=== PATIENT | male | born 1985 | race Caucasian/White ===

== ENCOUNTER 2018-03-12 12:12 | Emergency (ER) | payer SELFPAY ==
--- NOTE | 2018-03-12 13:52 | CT ---
NONCONTRAST CT CERVICAL SPINE: DATE: 03/12/18. HISTORY: Upper back pain and neck pain which is worse by moving head or neck. TECHNIQUE: Contiguous axial CT images are obtained through the cervical spine from the skull base to the T2-3 le gabriele. Sagittal and coronal reformatted images are provided. FINDINGS: No fracture or subluxation is seen involving the cervical spine. There is a sclerotic density in the T3 vertebral body demonstrating characteristics most suggestive of a small bone island. Prevertebral soft tissues are within normal limits. The lung apices are clear. IMPRESSION: No fracture or subluxation involving the cervical spine. POS: [facility]
--- NOTE | 2018-03-12 13:57 | CT ---
CT THORACIC SPINE: Technique: Multiple contiguous axial images were obtained through the thoracic spine with multiplanar reconstructions. Indications: Thoracic pain. No history of recent trauma. FINDINGS: Thoracic vertebrae maintain normal height and alignment. No compression deformity. No lytic process. There is a small focal sclerosis seen in the posterior aspect of the T3 vertebra. This is most consis tent with a small bone island. No evidence of disc bulge or disc protrusion. There is no evidence of central canal stenosis. No evid ence of fracture. IMPRESSION: Unremarkable CT thoracic spine. POS: [facility]
== END 2018-03-12 14:03 | disposition home or self-care (01) ==
LOC: ERS 12:12
DX: S29.012A Strain of muscle and tendon of back wall of thorax, initial encounter (principal); F17.210 Nicotine dependence, cigarettes, uncomplicated; X58.XXXA Exposure to other specified factors, initial encounter
CPT/HCPCS: 72125; 72128

== ENCOUNTER 2018-05-24 15:54 | Emergency (ER) | payer SELFPAY | END 2018-05-24 16:41 | disposition home or self-care (01) | LOC: ERS 15:54 | DX: M79.642 Pain in left hand (principal); J45.909 Unspecified asthma, uncomplicated; F17.210 Nicotine dependence, cigarettes, uncomplicated | CPT/HCPCS: 99283 ==

== ENCOUNTER 2020-05-29 17:10 | Emergency (ER) | payer BC, OTHER, SELFPAY ==
[2020-05-29] MEDS ORDERED: Ketorolac Tromethamine 30 MG/ML VIAL ONE (18:28)
[2020-05-29] MEDS ORDERED: HYDROcodone/Acetaminophen 5/325 mg Tablet ONE (18:28)
--- NOTE | 2020-05-29 18:30 | RAD ---
PORTABLE CHEST: History: Left rib pain. Slight shortness of breath. FINDINGS: Heart size and mediastinum are within normal limits. The lungs are clear of infiltrates. Surgical cli ps are seen in the right axilla. No rib abnormalities noted. No pneumothorax or pleural effusion. IMPRESSION: No active intrathoracic disease. POS: [facility]
== END 2020-05-29 18:39 | disposition home or self-care (01) ==
LOC: ERS 17:10
DX: R07.81 Pleurodynia (principal); J45.909 Unspecified asthma, uncomplicated; F17.210 Nicotine dependence, cigarettes, uncomplicated
CPT/HCPCS: 71045; 96372; J1885